=== PATIENT | female | born 1995 | race Caucasian/White ===

== ENCOUNTER 2021-06-01 19:39 | Emergency (ER) | payer OTHER, SELFPAY ==
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
[2021-06-01 19:50] VITALS: BP 144/87; PULSE 77; RESP 16; TEMP 36.3; O2SAT 100
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
[2021-06-01] MEDS: KETOROLAC (*BKC) 60 MG/2 ML VIAL IM (22:15)
[2021-06-01 23:21] VITALS: BP 133/71; PULSE 68; RESP 16; TEMP 36.8; O2SAT 99
== END 2021-06-01 23:40 | disposition home or self-care (01) ==
PROVIDERS: Emergency Provider Emergency Medicine
DX: S06.0X0A Concussion without loss of consciousness, initial encounter (principal); S16.1XXA Strain of muscle, fascia and tendon at neck level, initial encounter; V43.52XA Car driver injured in collision with other type car in traffic accident, initial encounter; M16.12 Unilateral primary osteoarthritis, left hip
CPT/HCPCS: 70450; 72125; 73502; 73562; 81025; 96372; 99284; J1885